=== PATIENT | female | born 1995 | race Caucasian/White ===

== ENCOUNTER 2016-09-25 10:39 | Inpatient (IN) | payer OTHER ==
[~2016-09-25] VITALS: Ht 160 cm; Wt 68.0 kg
[~2016-09-25 10:39] MED LIST: ALBU8.5H2 INHALATION; EPIN0.3P17 IJ; LIPA1CAP3 PO; ONDA-53 PO; PNV1TABL9 PO; VENL37.53 PO; ZOV800 PO; [UNRECOGNIZED DRUG - CODE] IV
[2016-09-25 11:57] LABS: BASOPHILS % (AUTO) 0.1 % (0-3); EOSINOPHILS % (AUTO) 0.9 % (0-5); MONOCYTES % (AUTO) 7.2 % (4-12); Mean Corpuscular Hemoglobin 31.5 pg (27.0-35.0); Mean Corpuscular Volume 92.1 fL (81-100); NEUTROPHILS % (AUTO) 74.4 % (40-74); Platelet Count 186 bil/L (150-400)
[2016-09-25 12:16] LABS: Bilirubin, Direct 0.2 mg/dL (0.0-0.3)
[2016-09-25] MEDS ORDERED: Lactated Ringer's 1,000 ML IV PRN (12:19)
[2016-09-25] MEDS ORDERED: Oxytocin 10 Unit/mL Inj IM PRN (12:20)
[2016-09-25] MEDS ORDERED: Carboprost 250 mCg/mL Inj IM PRN (12:20)
[2016-09-25] MEDS ORDERED: Ondansetron 2 mg/mL 2 mL Inj IVPUSH PRN (12:20)
[2016-09-25] MEDS ORDERED: Hemorrhage Kit, Post Partum XX ONE (12:20)
[2016-09-25] MEDS ORDERED: Oxytocin 30 Units/500 mL LR 30 UNITS in IV Premix 1 EACH IV PRN ×2 (12:20→18:55)
[2016-09-25] MEDS ORDERED: Methylergonovine 0.2 mg/mL Inj IM PRN (12:20)
[2016-09-25] MEDS: Clindamycin Inj 900 MG in IV Premix 1 EACH IV SCH ×2 (14:37→22:26)
[2016-09-25] MEDS: Lactated Ringer's 1,000 ML IV SCH ×2 (14:37→23:30)
[2016-09-25] MEDS: [UNRECOGNIZED DRUG - OTHER] PO SCH (17:59)
[2016-09-25] MEDS: PANCRELIPASE PO SCH (17:59)
[2016-09-25] MEDS ORDERED: LORA10CA PO (18:32)
[2016-09-25] MEDS ORDERED: Oxytocin 30 Units/500 mL LR Premix IV SCH (18:50)
[2016-09-25] MEDS: Sodium Chloride LOK Flush 10 mL Syringe IVFLUSH PRN (19:49)
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
[2016-09-25] MEDS ORDERED: Albuterol 2.5 mg/3 mL Inhalation Solution NEB PRN (20:20)
[2016-09-25] MEDS: Venlafaxine XR 37.5 mg ER24 Capsule PO SCH (21:27)
[2016-09-25] MEDS: Acyclovir 400 mg Tablet PO SCH (21:27)
[2016-09-25] MEDS ORDERED: Lactated Ringer's 500 ML IV ONE (22:57)
[2016-09-25] MEDS ORDERED: Lactated Ringer's 1,000 ML IV SCH (22:57)
--- NOTE | 2016-09-25 22:59 | PCM.HPANE ---
Patient Data Date of Service: Sep 25, 2016 Surgeon Admitting Provider:Venus Martinez MD Attending Provider:Venus Martinez MD Primary Care Physician:Other,Physician Other Provider:Rupal Ray Anesthesia Reason for Visit Early Labor EARLY LABOR Ht/WT & BMI Height (Feet): 5 Height (Inches): 3 Weight (Kilograms): 68 Body Mass Index Allergies Coded Allergies: bee venom protein (honey bee) (Verified Allergy, Severe, 09/25/16) citalopram (Verified Allergy, Severe, hives, 09/25/16) adhesive tape (Verified Allergy, Intermediate, rash, 09/25/16) cephalexin (Verified Allergy, Mild, rash, 09/25/16) MRSA MRSA: No Medications Hypertension Medication: No Home Meds Incl Beta [place]: No Reported Medications Loratadine (Claritin)10 Mg [id number] Mg PO DAILY Ref 0 09/25/16 Velaglucerase Yonatan (Vpriv)400 Unit Vial3,200 Unit IV Bi-weekly 09/02/16 Albuterol HFA (Proair HFA)8.5 Gm Hfa.aer.ad2 Puffs INHALATION Q4H #1 INHALER 09/02/16 Epinephrine 0.3 Mg/0.3 Ml Auto.injct0.3 Mg IJ DIRECTED PRN allergies 09/02/16 Ondansetron 4 Mg Tablet4 Mg PO DIRECTED PRN For Nausea/Vomiting 09/02/16 Pnv Cmb#21/Iron/Folic Acid ( Complete Caplet)1 Each Tablet1 Each PO DAILY 09/02/16 Venlafaxine ER (Effexor XR)37.5 Mg Nkyxogl96.5 Mg PO DAILY Ref 0 09/02/16 Lipase/Protease/Amylase (Nicole BATRES)12,000 Unit Capsule1 Capsule PO DAILY 09/02/16 Acyclovir 800 Mg Sji702 Mg PO BID Ref 0 09/02/16 History History of ENT Problems?: Yes Hx of Heart Problems?: Yes Cardiovascular History: Denies:: Chest Pain Hx of Respiratory Problem?: Yes Respiratory History: Positive for:: Asthma Hx Neurologic Problems?: Yes Neurological History: Positive for:: Dizziness Denies:: CVA Seizures Other Neurological Pertinent: chronic bone pain from Gaucher's; per OB note - patient has a 8th grade vs 4th grade comprehension level due to Gaucher's Hx of GI Problems?: Yes Gastrointestinal History: Positive for:: Heartburn Liver Disease (hepatosplenomegaly from Gaucher's) Hx of Problems?: No Female Hx: Positive for:: Currently Hx Musculoskeletal Problems?: Yes Musculoskeletal History: Positive for:: Degenerative Joint (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 & chronic lower back pain) Hx of Psycho/Social Problems?: Yes Psycho Social History: Positive for:: Anxiety Hx Depression Hx Surgeries?: Yes (multiple portacath, bone marrow biopsies - multiple) Hx Any Other Health Problems?: Yes (Gaucher's) Other Pertinent History: h/o thrombocytopenia from Gaucher's - currently stable on medications Hx Alcohol Use: NoHx Substance Use: Yes (current use of marijuana, sober from narcotic abuse since 2013) Smoking Status: Current Every Day Smoker Have You Smoked inLast 12 mo: Yes Stop/Bang Treated for Sleep Apnea?: No Do You Have a CPAP Machine?: No S-Snoring: Do You Snore Loudly: No T-Tired: feel tired, fatigued: No O-Obsered: Observed not breath: No P-Blood Pressure: treated: No B- Body Mass Index > 35 kg/m2: No A- Age over 50: No N- Neck Large Circumference: No G- Gender Male: No IDALIA Risk Assessment: Low Risk, <3 Yes Risk Assessment Category Category 1A: Patient has history of documented sleep apnea, and HAS NOT received any narcotic, sedative or anesthesia administration during this stay. Category 1B: Patient has history of documented sleep apnea, and HAS received any narcotic , sedative or anesthesia administration during this stay Category 2: Patient has SUSPECTED Obstructive Sleep Apnea, and HAS received any narcotic , sedative or anesthesia administration during this stay. Category 3: Patient has SUSPECTED Obstructive Sleep Apnea and HAS NOT received narcotic, sedative or anesthesia administration during this stay. Category 4: Outpatient in Procedural Areas with known sleep apnea or who screen positive for High Risk via the STOP/BANG questionnaire. Exam Exam General Appearance: Alert, Oriented X3, Cooperative, No Acute Distress HEENT/AIRWAY: MP 3, Neck Movement (from), Mouth Opening (3), Other (TMD3) Lungs: Normal Air Movement Heart: Exam Unremarkable, Regular Rate/Rhythm, Normal S1, Normal S2, No Murmurs /Rubs/Gallops Meds/Labs/Diagnostics Admission Meds Current Medications Clindamycin Phosphate/ Dextrose 900 mg/ Premix 50 ml @ 100 mls/hr Q8 IV Last administered on 09/25/16 22:26; Start 09/25/16 at 12:20 Lactated Ringer's (Lr) 1,000 ml @ 125 mls/hr Q8H IV Last administered on 14:37; Start 09/25/16 at 12:25 Dinoprostone (Cervidil Vaginal Insert) 10 mg ONCE ONCE VAGINAL Last administered on 09/25/16 13:29; Start 09/25/16 at 12:25; Stop 09/25/16 at 12:29 ; Status DC Patient Own Medication (Patient's Own -> Oral Medication) 2 ea TIDWM PO Last administered on 09/25/16 17:59; Start 09/25/16 at 17:30 Acyclovir (Zovirax) 400 mg BID PO Last administered on 09/25/16 21:27; Start 09/25/16 at 20:30 Venlafaxine HCl (Effexor XR) 37.5 mg HS PO Last administered on 09/25/16 21:27 ; Start 09/25/16 at 21:00 Labs Test 09/25/16 11:30 White Blood Count 15.0th/mm3 (3.8-10.1) Red Blood Count 4.32mil/mm3 (3.90-5.20) Hemoglobin 13.6g/dL (12.0-15.6) Hematocrit 39.8% (35.0-46.0) Mean Corpuscular Volume 92.1fL (81-100) Mean Corpuscular Hemoglobin 31.5pg (27.0-35.0) Mean Corpuscular Hemoglobin Concent 34.2% (32.0-37.0) Red Cell Distribution Width 14.2% (12.3-15.4) Platelet Count 186bil/L (150-400) Neutrophils (%) (Auto) 74.4% (40-74) Lymphocytes (%) (Auto) 16.7% (14-46) Monocytes (%) (Auto) 7.2% (4-12) Eosinophils (%) (Auto) 0.9% (0-5) Basophils (%) (Auto) 0.1% (0-3) Total Bilirubin 0.3mg/dL (0.0-1.2) Direct Bilirubin 0.2mg/dL (0.0-0.3) Aspartate Amino Transf (AST/SGOT) 30U/L (0-50) Alanine Aminotransferase (ALT/SGPT) 21U/L (0-32) Alkaline Phosphatase 133U/L (25-150) Total Protein 7.4g/dL (6.4-8.4) Albumin 3.6g/dL (3.4-5.0) Plan Impression Patient chart reviewed, patient interviewed and anesthestic plan with risks, benefits, and alternatives discussed, and informed consent obtained. ASA Physical Status: ASA3 Severe Disease Anesthetic Plan: Epidural Bene/Risks/Altern/Consents: Yes (to patient (OB states signs own consent) and foster mother (who also signed consent)) HP Complete Prior to Induction: Yes Montrell Robles MD Sep 25, 2016 22:59
[2016-09-25] MEDS ORDERED: Atropine 1 mg/10 mL (Code) Syringe IVPUSH PRN (23:00)
[2016-09-25] MEDS ORDERED: EPHEDrine Sulfate 50 mg/mL Inj IVPUSH PRN (23:00)
[2016-09-25] MEDS ORDERED: fentaNYL 2 mCg/mL-Bupiv 0.125% 100 ML EPIDURAL SCH (23:00)
[2016-09-26] MEDS: fentaNYL-PF 50 mCg/mL 2 mL Inj IVPUSH PRN ×2 (00:21→00:33)
[2016-09-26] MEDS: Sodium Chloride LOK Flush 10 mL Syringe IVFLUSH PRN (00:33)
[2016-09-26 01:00] LABS: INR 0.89 ratio
[2016-09-26] MEDS ORDERED: Lactated Ringer's 1,000 ML IV SCH (03:01)
[2016-09-26] MEDS ORDERED: Carboprost 250 mCg/mL Inj IM PRN (03:05)
[2016-09-26] MEDS ORDERED: Oxytocin 10 Unit/mL Inj IM PRN (03:05)
[2016-09-26] MEDS ORDERED: Witch Hazel-Glycerin Pads TOPICAL PRN (03:05)
[2016-09-26] MEDS ORDERED: Methylergonovine 0.2 mg/mL Inj IM PRN (03:05)
[2016-09-26] MEDS ORDERED: Hemorrhage Kit, Post Partum XX ONE (03:05)
[2016-09-26] MEDS ORDERED: LANOlin HPA 7 Gm Ointment TOPICAL PRN (03:05)
[2016-09-26] MEDS ORDERED: Benzocaine (Dermoplast) 20% 60 Gm Spray TOPICAL PRN (03:05)
[2016-09-26] MEDS ORDERED: Oxytocin 30 Units/500 mL LR 30 UNITS in IV Premix 1 EACH IV PRN (03:05)
--- NOTE | 2016-09-26 03:18 | PCM.OBVAG ---
Vaginal Delivery Date of Service Sep 26, 2016 Pre Operative Diagnosis Pre Operative Diagnosis 1. at 38 weeks +5 days with spontaneous rupture of membranes 2. Labor induction with Cervidil and Pitocin 3. Gaucher's disease 4. Spontaneous vaginal delivery of a live born male Post Operative Diagnosis Post Operative Diagnosis 1. at 38 weeks +5 days with spontaneous rupture of membranes 2. Labor induction with Cervidil and Pitocin 3. Gaucher's disease 4. Spontaneous vaginal delivery of a live born male Procedure Obstetical Procedure: Normal Spontaneous Vaginal Delivery Pelletizer Operator/Art Consultant Provider and Art Consultant: Dr. Venus Martinez Indication for Procedure Induction: Induction of labor, Pitocin augmentation, SROM, Progressed normally through labor Findings Obstetrical Findings: (Male), Cord (3 Vessel), Presentation (Vertex), 1 minute (9), 5 minutes (9), Placenta (Intact/Normal), Perineal Laceration (2nd degree) Analgesia/Medications Obstetrical Anesthesia: IV pain medication Procedure Details Procedure Details Patient is a pleasant 21-year-old with Gaucher's disease with an EDC of . She had spontaneous rupture of membranes at 2100 hrs. on 09/24/2016 and presented to the center in the afternoon of 09/25/2016. She is GBS negative but was covered with clindamycin 900 mg IV from admission and received 2 doses prior to delivery. Cervidil was initially placed but it washed out after a couple of hours and low dose Pitocin augmentation was started. Patient kicked very nicely into labor with this herself and fluid remained clear. heart rate baseline was in the 140 to 150s with good beat to beat variability. She received fentanyl IV for pain management during labor and an epidural was attempted but unable to be placed. She has had previous bone marrow biopsies for her Gaucher's disease and the condition itself can cause bone spurring and skeletal bony pain which the patient has dealt with over the years. She thankfully made good progress through labor. When she was in late active stage of labor, she was sitting on the toilet and felt lightheaded and had facial flushing. She was attended directly by family and nursing staff but fainted briefly for 20-30 seconds. She did not fall and had no injuries. She has done this in the past and her family was aware of the signs of presyncope for her. Patient was taken back to her bed and was complete shortly thereafter. Her vital signs were reassuring when checked immediately after this episode. She went onto spontaneous vaginal delivery of a live born male infant with a loose loop of nuchal cord that was reduced over the head prior to delivery of the shoulders. There was terminal meconium. Baby was placed directly onto the maternal abdomen and delayed cord camping was observed. Baby was crying right away but his face was very bruised from the forehead, down over the cheeks and even onto the nose and by his ear. O2 sats were checked and these were reassuring and ranged 96 to 99% on room air on the baby. Placenta delivered intact with a three-vessel cord and estimated blood loss at time of delivery was less than 200 mils. Mother did sustain a small midline second degree tear to the perineum which was infiltrated with lidocaine then 2- 0 Monocryl which is a non-braided suture, was used to repair this. Mom has been breast-feeding already and is doing remarkably well. She has excellent family support. Her first stage of labor was 4 hours and 5 minutes, second stage was 5 minutes, and third stage was 5 minutes. Mom and baby are both stable at this time and routine care is anticipated. Specimen Placenta was intact with a three-vessel cord and is for routine disposal. It was heavily calcified around the edges, and there were trailing membranes. It was carefully examined and appears to be completely intact. Blood Loss & Administration Estimated Blood Loss: 200 Post Procedure Plan Post delivery Condition: Mom rikki Venus Martinez MD Sep 26, 2016 03:18
[2016-09-26] MEDS: HYDROcodone-APAP 5-325 mg Tablet PO PRN (03:57)
[2016-09-26] MEDS: [UNRECOGNIZED DRUG - OTHER] PO SCH ×2 (09:30→21:30)
[2016-09-26] MEDS: PANCRELIPASE PO SCH ×2 (09:30→21:30)
[2016-09-26] MEDS: Acyclovir 400 mg Tablet PO SCH ×2 (09:56→20:59)
[2016-09-26] MEDS: Venlafaxine XR 37.5 mg ER24 Capsule PO SCH (20:59)
[2016-09-27 07:57] LABS: Mean Corpuscular Hemoglobin 31.1 pg (27.0-35.0); Mean Corpuscular Volume 92.2 fL (81-100)
[2016-09-27] MEDS: PANCRELIPASE PO SCH (08:30)
[2016-09-27] MEDS: [UNRECOGNIZED DRUG - OTHER] PO SCH (08:30)
[2016-09-27] MEDS: Acyclovir 400 mg Tablet PO SCH (09:09)
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
--- NOTE | 2016-09-27 09:40 | PCM.DIOB ---
Obstetrical Disch Instruction Date of Service: Sep 27, 2016 Dates of Hospitalization Date of Hospital Admission Sep 25, 2016 at 11:19 Providers Admitting Physician: Venus Martinez MD Primary Care Physician: Other,Physician Attending Physician: Venus Martinez MD Discharge Diagnosis Discharge Diagnosis 1. at 38 weeks +5 days with spontaneous rupture of membranes 2. Cervidil and Pitocin induction of labor. 3. Gaucher's disease 4. Spontaneous vaginal delivery of a live born male infant Post Operative diagnosis 1. at 38 weeks +5 days with spontaneous rupture of membranes 2. Cervidil and Pitocin induction of labor 3. Gaucher's disease 4. Spontaneous vaginal delivery of a live born male Problems: (1) with 38 completed weeks gestation Status: Resolved ICD Code: Z3A.38 (2) SROM (spontaneous rupture of membranes) Status: Resolved (3) Gaucher disease, type I Status: Acute ICD Code: E75.22 (4) (normal spontaneous vaginal delivery) Status: Acute ICD Code: O80 Diet Discharge Diet: No restrictions Activity Discharge Activity-General: No restrictions, Pelvic Rest for 6 weeks, Try not to overdue, Be up and about, Balance rest and activity, Activity as pain allows , Activity as energy allows Dressing and Incisional Care Hygiene: May shower, Perineal care, Sitz bath, Dermoplast spray, Witch Guerline pads, Ice Follow Up Plan Follow-up Provider (F9): Venus Martinez MD Follow-up appointment: Months (1) Call your provider for: Fever or Chills, Shortness of breath, Heavy vaginal bleeding, Epigastric pain, Excessive constipation, Vaginal discomfort, Red painful breasts Venus Martinez MD Sep 27, 2016 09:40
[2016-09-27] MEDS ORDERED: Patient Own Medication PO (09:43)
[2016-09-27] MEDS ORDERED: HYDR-4003 PO (09:43)
[2016-09-27] MEDS ORDERED: IBUP800T28 PO (09:43)
[2016-09-27] MEDS ORDERED: ACYC400T2 PO (09:43)
[2016-09-27] MEDS: HYDROcodone-APAP 5-325 mg Tablet PO PRN (10:24)
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
[2016-09-27 11:20] VITALS: BP 109/84; PULSE 92; RESP 18
--- NOTE | 2016-09-27 11:52 | PCM.ANEP1 ---
Post Anesthesia Phase 1 PACU Phase 1 Assessment Date of Service: Sep 25, 2016 Vital Signs Vital Signs Date Time Temp Pulse Resp B/P Pulse Ox O2 Delivery O2 Flow Rate FiO2 09/27/16 11:20 36.4 92 18 109/84 Anesthetic Administered: Other (Failed attempts at placing epidural) Level of Alertness: Awake, talking BRADFORD's with Equal Strength: Yes Pain: No Pain Scale Score: 0 Nausea or Vomiting: No Oxygen Delivery: Room Air Lungs: Normal Air Movement Montrell Robles MD Sep 27, 2016 11:52
--- NOTE | 2016-09-27 11:53 | PCM.ANEP2 ---
Post Anesthesia Evaluation ASA/CMS Post Anesthesia VS in Patient's Normal Range?: Yes Resp Stable; Airway Patent?: Yes CV Function & Hydration Stable: Yes Mental Status Recovered?: Yes Pain control Satisfactory?: Yes N/V Control Satisfactory?: Yes Montrell Robles MD Sep 27, 2016 11:52
[2016-10-08] MEDS ORDERED: BECL8.7A6 INHALATION (09:58)
[2016-11-30] MEDS ORDERED: VENL75CA PO (10:11)
== END 2016-09-27 12:05 | disposition home or self-care (01) | DRG 775 ==
LOC: FBCO 10:39 → FBC 11:19
PROVIDERS: ADMIT Family Medicine; ATTEND Family Medicine
PROC: 10E0XZZ Delivery of Products of Conception, External Approach (ICD-10-PCS; principal; 2016-09-26)
PROC: 0KQM0ZZ Repair Perineum Muscle, Open Approach (ICD-10-PCS; 2016-09-26)
DX: O42.12 Full-term premature rupture of membranes, onset of labor more than 24 hours following rupture (principal); E75.22 Gaucher disease; O99.284 Endocrine, nutritional and metabolic diseases complicating childbirth; O69.81X0 Labor and delivery complicated by cord around neck, without compression, not applicable or unspecified; O70.1 Second degree perineal laceration during delivery; O75.89 Other specified complications of labor and delivery; J45.909 Unspecified asthma, uncomplicated; Z79.51 Long term (current) use of inhaled steroids; O99.334 Smoking (tobacco) complicating childbirth; F17.200 Nicotine dependence, unspecified, uncomplicated; Z3A.38 38 weeks gestation of pregnancy; Z37.0 Single live birth

== ENCOUNTER 2016-09-29 20:24 | Emergency (ER) | payer OTHER ==
[~2016-09-29] VITALS: Ht 160 cm; Wt 64.2 kg
[~2016-09-29 20:24] MED LIST changes: +ACYC400T2 PO; +HYDR-4003 PO; +IBUP800T28 PO; +LORA10CA PO; +Patient Own Medication PO; -ZOV800 PO
[2016-09-29 20:41] VITALS: BP 119/72; PULSE 109; RESP 16; O2SAT 98
[2016-09-29 22:36] VITALS: BP 125/87; PULSE 100; RESP 18; O2SAT 98
[2016-09-29 22:52] LABS: COLOR,URINE YELLOW (YELLOW)
[2016-09-29 22:53] LABS: APPEARANCE,URINE SLIGHTLY CLOUDY (CLEAR,HAZY); OCCULT BLOOD,URINE LARGE (NEGATIVE); UROBILINOGEN,URINE NORMAL (NORMAL)
--- NOTE | 2016-09-29 23:05 | ED.REPORT ---
HPI-General Illness Date of Service Sep 29, 2016 ED Provider: Nahum Colon MD History of Present Illness: Ryan Min is a 21 year old woman with a PMH of Gaucher's disease who presents 2 days post for dysuria and subjective purulent discharge seen on toilet paper after wiping. She relates that she has in the past had allergic and infectious reactions to suture material, and she had an episiotomy during her labor 2 days ago. She denies fevers, chills, or other constituional symptoms. Nursing Notes Stated Complaint: POSS INFECTION, HAD BABY 3 DAYS AGO Chief Complaint: General Complaint Allergies: Coded Allergies: bee venom protein (honey bee) (Verified Allergy, Severe, 09/29/16) citalopram (Verified Allergy, Severe, hives, 09/29/16) adhesive tape (Verified Allergy, Intermediate, rash, 09/29/16) cephalexin (Verified Allergy, Mild, rash, 09/29/16) Scheduled ([Patient Own Medication]) 1 EA EA 2 EA PO TIDWM Acyclovir (Acyclovir) 400 Mg Tablet 400 MG PO BID Albuterol HFA (Proair HFA) 8.5 Gm Hfa.aer.ad 2 PUFFS INHALATION Q4H Cefuroxime Axetil (Cefuroxime) 250 Mg Tablet 250 MG PO BID Lipase/Protease/Amylase (Creon DR) 12,000 Unit Capsule 1 CAPSULE PO DAILY Loratadine (Claritin) 10 Mg Capsule 10 MG PO DAILY Pnv Cmb#21/Iron/Folic Acid ( Complete Caplet) 1 Each Tablet 1 EACH PO DAILY Velaglucerase Yonatan (Vpriv) 400 Unit Vial 3,200 UNIT IV Bi-weekly Venlafaxine ER (Effexor XR) 37.5 Mg Capsule 37.5 MG PO DAILY Scheduled PRN Epinephrine (Epinephrine) 0.3 Mg/0.3 Ml Auto.injct 0.3 MG IJ DIRECTED PRN PRN allergies Hydrocodone-Acetaminophen 5-325 mg (Hydrocodone-Acetaminophen 5-325 mg) 1 Each Tablet 1-2 TABLET PO Q4H PRN PRN For Pain Ibuprofen (Ibuprofen) 800 Mg Tablet 800 MG PO TIDWM PRN PRN For Pain Ondansetron (Ondansetron) 4 Mg Tablet 4 MG PO DIRECTED PRN PRN For Nausea/ Vomiting General Time Seen by MD: 10:45 Chief Complaint Urinary burring Hx Obtained From: Patient Onset Occurred: 2 days ago Symptom Duration: Intermittent Severity: Current: No pain currently Severity: Maximum: Mild Recent Healthcare: Recent hospitalization (Labor and delivery) Similar Sx Previous: No Past Medical History Smoking History Current Every Day Smoker Review of Systems Full Review of Systems Female: Reports: Dysuria, Incontinence, Urinary frequency, Urinary urgency Complete sys rev & neg: except as marked. Physical Exam Gen: A/O x3 pleasant cooperative woman in NAD Neck: Supple, Full ROM, no lymphadenopathy HEENT: PERRL, EOMI, mucous membranes pink and moist CV: RRR, no murmurs rubs or gallops Chest: Port a cath in left lateral chest Resp: Lungs CTA BL, no wheezing rales or rhonchi : Patient with 6 o'clock suture repair of perineal tear, wound appers to be healing well without erythema or discharge around repair, small amount of blood at vaginal introitus, no goran discharge noted. Expected post edema and swelling Extr: No cyanosis clubbing or edema Neuro: CN 2-12 grossly intact, no focal neurologic deficit Vital Signs Vital Signs Date Time Temp Pulse Resp B/P Pulse Ox O2 Delivery O2 Flow Rate FiO2 09/30/16 00:44 98 20 111/80 99 Room Air 09/30/16 00:30 98 20 111/80 99 Room Air 09/29/16 22:36 100 18 125/87 98 Room Air 09/29/16 20:41 37.1 109 16 119/72 98 Room Air Initial VS: Reviewed Interpretation & Diagnostics Lab Results Interpretation Test 09/29/16 22:46 Urine Color Yellow (YELLOW) Urine Appearance Slightly cloudy Urine pH 6.0 (5.0-8.0) Urine Specific [place] 1.010 (1.003-1.035) Urine Protein Negativemg/dL (NEG,TRACE) Urine Glucose (UA) Negativemg/dL (NEGATIVE) Urine Ketones Negativemg/dL (NEGATIVE) Urine Occult Blood Large (NEGATIVE) Urine Nitrite Negative (NEGATIVE) Urine Bilirubin Negative (NEGATIVE) Urine Urobilinogen Normalmg/dL (NORMAL) Urine Leukocyte Esterase Moderate (NEGATIVE) Urine RBC >50/hpf (0-2) Urine WBC 11-50/hpf (0-5) Urine Epithelial Cells Moderate/hpf (NONE-MOD) Urine Crystals None seen (NONE SEEN) Urine Bacteria Moderate/hpf (NONE-FEW) Urine Hyaline Casts None/lpf (NONE) Urine Granular Casts None seen (NONE SEEN) Urine Waxy Casts None seen (NONE SEEN) Urine Red Blood Cell Casts None seen (NONE SEEN) Urine White Blood Cell Casts None seen (NONE SEEN) Urine Mucus Present (None Seen) Urine Trichomonas None seen (NONE SEEN) Urine Yeast None (NONE SEEN) Urinalysis Comment None Urine Culture Reflexed Indicated Re-Eval/Medical Decision Med Decision/Clinical Course Patient does not appear to have any acute process occuring around perineal repair site, the wound appears to be healing well and the stitches are patent without local discharge or signs of active infection. Urinalysis reveals a likely UTI. Patient was sent home with a script for Cefuroxime, this was selected due to high efficacy of 3rd gen cephalosporins on antibiogram, patient's previous adverse reaction to Keflex but not other cephalosporins, and ongoing . 21-year-old with prior history of intolerance of suture material presents with some discomfort in her perineal area after repair of an episiotomy. There is no evidence of inflammatory response beyond normal healing at that site. She does not urinary tract infection, which probably does account for her actual symptoms. She reportedly had some intolerance recorded to Keflex in the past, but she does not have any recall of that herself. She was given Ceftin as an alternative and observed here for thirty minutes with no apparent adverse reaction. Discharge now with Ceftin to follow, and plan follow-up with [facility]. Counseled Regarding: Diagnosis, Lab results, Need for follow-up, When/why to return to ED Discharge & Departure Shift Change Sign-Out Patient Care Transferred: No Laboratory Evaluation: Lab evaluation discussed Response to Therapy: Improved Primary Impression: UTI (urinary tract infection) Urinary tract infection type: acute cystitis Hematuria presence: without hematuria Qualified Code: N30.00 - Acute cystitis without hematuria Additional Impression: Gaucher disease, type I Disposition: Home Discharge Condition All VS Reviewed: Yes Condition: Stable Patient Instructions: Urinary Tract Infection in Women (DC) Additional Instructions: You appear to have a urinary tract infection at this time. We have given you a prescription for some antibiotics that should be safe and effective for lactating mothers. If your symptoms fail to improve, or you get more pain with goran pustular discharge from your perineal repair site you should either contact Dr. Martinez or come to the urgent care or ER for further evaluation. You may want to contact Dr. Martinez to move up you usual post visit to ensure that your sutured wound is healing appropriately. If you develop a rash, have trouble breathing, or have swelling or your tongue or throat stop taking your antibiotics immediately and contact Dr. Martinez Referrals: Venus Martinez MD (PCP) Attending Statement As attending of record for this patient, I conducted an independent history and physical exam, and concur with the resident documentation as above, and as amended. copies to: Venus Martinez MD, David E DO Sep 29, 2016 22:57 Nahum Colon MD Sep 30, 2016 07:35
[2016-09-29] MEDS ORDERED: CEFU250T82 PO (23:49)
[2016-09-30 00:30] VITALS: BP 111/80; PULSE 98; RESP 20; O2SAT 99
[2016-09-30 00:44] VITALS: BP 111/80; PULSE 98; RESP 20; O2SAT 99
[2016-10-08] MEDS ORDERED: BECL8.7A6 INHALATION (09:58)
[2016-11-30] MEDS ORDERED: VENL75CA PO (10:11)
== END 2016-09-30 00:44 | disposition home or self-care (01) ==
LOC: SED 20:24
DX: O86.20 Urinary tract infection following delivery, unspecified (principal); E75.22 Gaucher disease; F17.200 Nicotine dependence, unspecified, uncomplicated; Z88.8 Allergy status to other drugs, medicaments and biological substances; Z88.1 Allergy status to other antibiotic agents

== ENCOUNTER 2016-12-31 21:09 | Emergency (ER) | payer OTHER ==
[~2016-12-31] VITALS: Ht 160 cm; Wt 61.4 kg
[~2016-12-31 21:09] MED LIST changes: -HYDR-4003 PO; -VENL37.53 PO; +VENL75CA PO
[2016-12-31 21:20] VITALS: BP 119/67; PULSE 102; RESP 12; O2SAT 98
--- NOTE | 2016-12-31 21:55 | ED.REPORT ---
HPI-Allergic Reaction Date of Service Dec 31, 2016 ED Provider: Aba Cohen MD The patient is a 21 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 She received the shot for the first time today in her left deltoid. The pt reports an itchy, red, rash on her left arm. She denies throat swelling and difficulty breathing. 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 Nursing Notes Stated Complaint: ALLERGIC REACTION TO DEPO SHOT-SKIN RASH Chief Complaint: Allergic Reaction Nursing Notes Reviewed: Yes Allergies: Coded Allergies: bee venom protein (honey bee) (Verified Allergy, Severe, 09/29/16) citalopram (Verified Allergy, Severe, hives, 09/29/16) ketamine (Verified Allergy, Severe, 12/31/16) adhesive tape (Verified Allergy, Intermediate, rash, 09/29/16) midazolam (Verified Allergy, Intermediate, 12/31/16) cephalexin (Verified Allergy, Mild, rash, 09/29/16) Scheduled ([Patient Own Medication]) 1 EA EA 2 EA PO TIDWM Acyclovir (Acyclovir) 400 Mg Tablet 400 MG PO BID Albuterol HFA (Proair HFA) 8.5 Gm Hfa.aer.ad 2 PUFFS INHALATION Q4H Lipase/Protease/Amylase (Creon DR) 12,000 Unit Capsule 1 CAPSULE PO DAILY Loratadine (Claritin) 10 Mg Capsule 10 MG PO DAILY Pnv Cmb#21/Iron/Folic Acid ( Complete Caplet) 1 Each Tablet 1 EACH PO DAILY Velaglucerase Yonatan (Vpriv) 400 Unit Vial 3,200 UNIT IV Bi-weekly Venlafaxine ER (Effexor XR) 75 Mg Capsule 75 MG PO DAILY Scheduled PRN Epinephrine (Epinephrine) 0.3 Mg/0.3 Ml Auto.injct 0.3 MG IJ DIRECTED PRN PRN allergies Ibuprofen (Ibuprofen) 800 Mg Tablet 800 MG PO TIDWM PRN PRN For Pain Ondansetron (Ondansetron) 4 Mg Tablet 4 MG PO DIRECTED PRN PRN For Nausea/ Vomiting General Time Seen by MD: 21:53 Chief Complaint Allergic reaction Hx Obtained From: Patient Arrived By: Walk-in Onset Occurred: 5 - 8 hours ago Symptom Duration: Since onset Progression Since Onset: Gradually worsening Location: : Arm left Quality: Itching Severity: Current: Moderate Recent Healthcare: No recent doctor visit, No recent hospitalization Similar Sx Previous: No Past Medical History Smoking History Current Every Day Smoker Review of Systems Constitutional: Denies: Chills, Fever Ears / Nose / Throat: Denies: Nasal congestion, Sore throat, Throat swelling, Tongue swelling Respiratory: Denies: Dyspnea on exertion, Shortness of breath Skin: Reports Itching, Reports Rash, Denies Diaphoresis, Denies Swelling Allergy / Immune: Reports: Allergic reaction, Itching, Denies: Anaphylaxis, Hives, Rhinorrhea, Sneezing Neurologic: Denies: Change LOC, Dizziness, Numbness Complete sys rev & neg: except as marked. Physical Exam Physical Exam Notes: Initial Vital Signs Vital Signs (First) Date Time Temp Pulse Resp B/P Pulse Ox O2 Delivery O2 Flow Rate FiO2 12/31/16 21:20 36.6 102 12 119/67 98 Room Air Initial VS: Reviewed General/Constitutional: Awake, Alert, No acute distress, Cooperative Respiratory / Chest: Atraumatic, Breath sounds NL, Breath sounds = bilat, No respiratory distress Cardiovascular: Heart rate NL, Regular rhythm, Heart sounds NL Color / Condition: Positive: Rash present Rash / Lesion Notes: itchy, red, urticaria on her left arm distal to where she received her Depo shot on her left deltoid no swelling of lips or airway no further urticaria no anaphylaxin Head / Eyes: Atraumatic, Normocephalic, PERRL, EOMI ENT: Atraumatic, Airway patent, Mucous membranes moist Abdomen: Atraumatic, Soft, Non-tender, No guarding, No rebound, No distention Neurologic: Oriented X3, Speech NL, No motor deficits Neck: Atraumatic, Supple Lower Extremity / Pelvis / MS: Atraumatic, Inspection NL, No deformity Re-Eval/Medical Decision Med Decision/Clinical Course The patient is a 21 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 She received the shot for the first time today in her left deltoid. The pt reports an itchy, red, rash on her left arm. She denies throat swelling and difficulty breathing. 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 Here in the emergency department the patient is afebrile stable vital signs and examination as above. She has scattered mild urticarial papules about her left forearm though otherwise no signs of anaphylaxis whatsoever. He has not administered her EpiPen or taken any medications for her symptoms. She was monitored here in the emergency department and developed no signs of evolving rash or anaphylaxis. She was treated with Benadryl with significant improvement. 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 She is advised to take Benadryl every 6 hours as needed and follow-up with her primary care physician. For any severe or worsening rash she will administer her EpiPen and return to the emergency Department immediately. Prior to discharge follow-up and return precautions were reviewed in detail with the patient who verbalized understanding and agreement with the plan. The patient was discharged in stable condition. Counseled Regarding: Diagnosis, Lab results, Need for follow-up, When/why to return to ED Discharge & Departure Primary Impression: Allergic reaction Encounter type: initial encounter Qualified Code: T78.40XA - Allergy, unspecified, initial encounter Additional Impressions: Urticaria Itching History of anaphylaxis Disposition: Home Discharge Condition All VS Reviewed: Yes Condition: Stable Patient Instructions: General Allergic Reaction (ED) Additional Instructions: I am going to send you home with some Benadryl, 25 mg every 4-6 hrs. It may make you slightly drowsy but it will help with the reaction. Return to the Emergency Department if you experience any new or worsening symptoms including lip swelling, difficulty breathing, increased rash, pain, or tongue swelling. If your reaction is worsening take your EPI. Thank you for entrusting us with your care today. Referrals: Venus Martinez MD (PCP) Cam Attestation Portion of this note were transcribed by Vilma Cabrales. I, Dr. Cohen, personally performed the history, physical exam, and medical decision-making: I reviewed and confirmed the accuracy for the information in the transcribed note. Signed by: cam Patel, 12/31/16 0614 copies to: Venus Martinez MD, Beck O MD Dec 31, 2016 21:55 Vilma Cabrales Dec 31, 2016 23:03
[2016-12-31] MEDS ORDERED: diphenhydrAMINE 25 mg Capsule PO ONE (23:05)
[2016-12-31 23:14] VITALS: BP 107/77; PULSE 118; RESP 18; O2SAT 100
== END 2016-12-31 23:15 | disposition home or self-care (01) ==
LOC: SED 21:09
DX: L50.0 Allergic urticaria (principal); F17.200 Nicotine dependence, unspecified, uncomplicated; Z87.892 Personal history of anaphylaxis; Z88.1 Allergy status to other antibiotic agents; Z88.4 Allergy status to anesthetic agent; Z88.8 Allergy status to other drugs, medicaments and biological substances; Z91.030 Bee allergy status; Z91.048 Other nonmedicinal substance allergy status
CPT/HCPCS: 81025; 96372; 99283; G0463; J1050